=== PATIENT | male | born 1995 | race Caucasian/White ===

== ENCOUNTER 2020-01-07 11:32 | Outpatient (CLI) | payer OTHER ==
--- NOTE | 2020-01-07 13:10 | RAD ---
LUMBAR SPINE 2 VIEWS: Date: 01/07/2020 HISTORY: Low back pain. FINDINGS: Lumbar vertebra maintain normal height and alignment. Disc spaces are preserved. Minimal curvature wh ich may be positional. No evidence of spondylolisthesis. IMPRESSION: Unremarkable lumbar spine. Minimal curvature may be positional. POS: [id number]
== END 2020-01-07 11:33 | disposition home or self-care (01) ==
LOC: SCSRAD 11:32
PROVIDERS: ATTEND Family Medicine
DX: M54.5 Low back pain (principal)
CPT/HCPCS: 72100